=== PATIENT | male | born 1990 | race Two or more races ===

== ENCOUNTER 2025-02-02 14:08 | Outpatient (AMB) | payer OTHER, SELFPAY ==
[2025-02-02 14:16] VITALS: BP 120/60; PULSE 95; O2SAT 97
--- NOTE | 2025-02-02 14:16 | A.OFFVIS_ITS ---
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 fatigued during the day Fisher Troll Line Required: Yes Fisher Troll Line Name: Sanjuana Accompanied by: Self / Same As Patient Allergies No Known Allergies Allergy (Verified 02/02/25 14:18) HPI Comments Details: 34 year old Kazakh male referred to us by his pcp for a sleep apnea evaluation. Fisher Troll Line on Ipad helps with history He goes to sleep at 11am and falls asleep at 1am and will wake up at 6-8am in the morning. He has been getting up 2x for the bathroom. He stays on his cellphone. Has multiple arousals, and takes naps daily. He feels fatigued daily and has mild headaches 1-2/week.He denies parasomnias and or abnormal movements in sleep. He has allergies and congestion of sinuses takes flonase 50mcg/actuation 1 spray. He has psoriasis and an upcoming appt with an manager of allied health services. His memory is poor and he forgets alot. Mood is obsessive, he has intrusive thoughts and feels depressed, he takes anxiety meds fluoxamine 100mg po BID. Diet is stable. He denies smoking, taking MJ and or and drinks alcohol socially. Physical Exam Vital Signs: Last Vital Signs Pulse 95 02/02/25 14:16 BP 120/60 02/02/25 14:16 Pulse Ox 97 02/02/25 14:16 Oxygen Delivery Method Room Air 02/02/25 14:16 Const General: cooperative, comfortable and no acute distress Nutritional Appearance: average body habitus Orientation/consciousness: patient oriented x3 HEENT Face and sinus: Yes face symmetric Teeth and gingiva: other (mallampti score of 3) Eyes Pupils: Equal, round and reactive pupils present Neck Neck: Yes full ROM Resp Effort & Inspection: normal respiratory effort and able to speak in complete sentences Neuro General: patient oriented x3 and moves all extremities Cranial nerves: Yes Equal, round and reactive pupils present, Yes Normal facial strength present, Yes Midline tongue present, Yes Ability to bilaterally rotate head present and Yes Ability to bilaterally elevate shoulders present Cognition (Neuro): normal cognition Gait exam (Neuro): Normal gait present Motor exam (neuro): 5/5 motor strength present throughout and Normal motor mu scle tone present throughout Psych Appearance: grossly normal Mental Status: mental status grossly normal Thought process: Normal thought process present Thought content: Normal thought content present Assessment & Plan Assessment & Plan (1) Excessive daytime sleepiness: Code(s): G47.19 - Other hypersomnia Category: Medical Plan HST to r/o yen labs to r/o fatigue related to anemia or deficiencies F/U in 3 months. Orders: Orders RT home sleep study Today G47.19 - Other hypersomnia Vitamin B6 Today G47.19 - Other hypersomnia Vitamin B1 Today G47.19 - Other hypersomnia Methylmalonic Acid Today G47.19 - Other hypersomnia, G47.9 - Sleep disorder, unspecified, R53.83 - Other fatigue Ferritin Today G47.19 - Other hypersomnia Comprehensive Met. Panel Today G47.19 - Other hypersomnia Complete Blood Count no Diff Today G47.19 - Other hypersomnia Vitamin D 25-OH Total Today G47.19 - Other hypersomnia Vitamin B12 and Folate Today G47.19 - Other hypersomnia TSH reflex Free T4 Today G47.19 - Other hypersomnia Homocysteine Today G47.19 - Other hypersomnia, G47.9 - Sleep disorder, unspecified, R53.83 - Other fatigue Patient Instructions: Sleep Hygiene provided: set a scheduled bedtime and wake time to help regulate the circadian rhythm and balance the release of pituitary hormones. Sleep in a dark room, temperatures below 68 degrees, and no devices n bed. Limit caffeinated products 6 hours prior to bed, and limit fluids 2-4 hours prior to bed. Gentle night yoga, diffusing essential oils, and playing soft music can be relaxing. Coding Level of Care Code New Pt Level 4 (68685) Diagnoses Excessive daytime sleepiness G47.19 Sleep Questionnaire Difficulty falling asleep: No Difficulty staying asleep?: No Number of arousals: 2-3 Snoring: Yes Witnessed apneas: No Gasping arousals: No Nocturia: Yes GERD: No Vivid dreams: No Acting out dreams: No Abnormal behavior in sleep: No Abnormal movements in sleep: No Morning headaches: No Excessive daytime sleepiness: No Daytime naps: Yes Restless legs: No Hallucinations: No Sleep paralysis: No Drop attacks: Yes Sleep Study: No CPAP: No
== END 2025-02-02 14:52 | disposition home or self-care (01) ==
LOC: HO.HSMS 14:09
PROVIDERS: Visit Provider Physician Assistant Medical
DX: G47.19 Other hypersomnia (principal)
CPT/HCPCS: 99204

== ENCOUNTER 2025-02-03 09:42 | Outpatient (REF) | payer OTHER, SELFPAY ==
--- OUTSIDE RECORDS SUMMARY | 2025-02-03 10:50 | XMS_ITS | Encounter Summary ---
Author Organization [facility] Address [address] [place] [address] Care Team Providers Care Final Assembly Inspector Name Role Phone Kamryn Pierson PA-C Primary Care Provider [phone] Encounter Details Date Type Department Care Team ([facility] st Contact Info) Description 06/08/2024 / TELEPHONE [facility] [address] [place] [phone] Cruz Agosto LCSW [address] [place], [place] [phone] Social History Tobacco Use Types Packs/Day Years Used Date Smoking Tobacco: Never Smokeless Tobacco: Never Alcohol Use Standard Drinks/Week Comments Yes 0 (1 standard drink = 0.6 oz pur e alcohol) Soccialy Wine Social Connections Answer Date Recorded Connectedness 0 09/03/2021 Financial Resource Strain Answer Date R ecorded Financial Resource Strain 0 2021 Stress Answer Date Recorded Stress 0 09/03/2021 Physical Activity Answer Date Recorded Physical Activity 0 06/05/2021 Food Insecurity Answer Date Recorded Food 0 09/03/2021 Transportation Needs Answer Date Record ed Transportation 0 09/03/2021 Housing Stability Answer Date Recorded Housing 0 09/03/2021 Safety and Environment Answer Date Kareem rded Safety 0 09/03/2021 Utilities Answer Date Recorded Utilities 0 09/03/2021 Employment Answer Date Recorded Stress 0 09/03/2021 Sex and Gender Information Value Date Recorded Sex Assigned at Male 09/03/2021 1:03 PM PDT Legal Sex Male 8:21 AM PST Gender Identity Male 09/03/2021 1:03 PM PDT Sexual Orientation Straight 09/03/2021 1: 03 PM PDT COVID-19 Exposure Response Date Recorded In the last 10 days, have yo u been in contact with someone who was confirmed or suspected to have Coronavirus/COVID-19? Unable to assess 05/27/2024 11: 04 AM EST documented as of this encounter Plan of Treatment Upcoming Encounters Date Type Department Care Team (Late st Contact Info) Description 02/10/2025 3:15 PM EDT BH/MH Visits [facility] [address] [place] [phone] Aly Payne, ROOFING SUPERINTENDENT [address] [place] [address] 02/25/2025 9:40 AM EDT BH/MH Visits [address] [phone] Marjorie Medina, SWEAT BOX ATTENDANT [address] [place] [phone] Salome Espinoza [address] [place] [address] 05/23/2025 10:00 AM EST Office Visit [facility] Dental [address] [place] [phone] [place] [address] documented as of this encounter Visit Diagnoses Diagnosis Anxiety- Primary Anxiety state, unspecified documented in this encounter Additional Health Concerns Assessment Noted Time PHQ-9 Depression Total Score: 0 08/21/19 11:03 AM PDT A Depression follow-up plan has been documented for the patient 11/28/2023 11:38 AM PDT documented as of this encounter Care Teams Final Assembly Inspector Relationship Specialty Start Date End Date Kamryn Pierson PA-C [address] [place] [address] PCP - General Primary Care 08/04/23 documented as of this encounter
--- OUTSIDE RECORDS SUMMARY | 2025-02-03 10:50 | XMS_ITS | Clinical Summary ---
Author Organization [facility] Address [address] [place] [address] Care Team Providers Care Vocational Nurse Name Role Phone Kamryn Pierson PA-C Primary Care Provider Source Comments PLEASE NOTE, if this patient is a minor, it may be UNLAWFUL to discuss sensitive information that is contained in these records (such as FAMILY PLANNING, MENTAL HEALTH or SUBSTANCE ABUSE) with the minor patient's parent or other person without the patient's specific authorization.[facility] Allergies No known active allergies Medications cetirizine (ZYRTEC) 10 mg tabletIndication s:Seasonal allergic rhinitis, unspecified trigger Take 1 Tablet by mouth once daily 90 Tablet 1 2 Active clotrimazole-bet amethasone (LOTRISONE) 1-0.05 % creamIndications :Ringworm Apply topically 2 (two) times daily 45 g 4 Active fluticasone (FLONASE) 50 mcg/actuation nasal sprayIndications :Seasonal allergic rhinitis, unspecified trigger SHAKE LIQUID AND USE 1 SPRAY IN EACH NOSTRIL EVERY DAY 16 g 1 4 Active fluvoxaMINE (LUVOX) 100 mg tabletIndication s:Obsessive-comp ulsive disorder with good or fair insight Take 1 Tablet by mouth 2 (two) times daily for 90 days. 60 Tablet 2 5 03/17/20 25 Active predniSONE (DELTASONE) 20 mg tabletIndication s:Contact dermatitis, unspecified contact dermatitis type, unspecified trigger Take 3 Tablets by mouth once daily for 5 days, THEN 2 Tablets once daily for 5 days, THEN 1 Tablet once daily for 5 days. 30 Tablet 5 02/06/20 25 Active betamethasone dipropionate 0.05 % creamIndications :Contact dermatitis, unspecified contact dermatitis type, unspecified trigger Apply BID on areas BELOW the neck. Use only ONCE DAILY for areas ABOVE the neck. 45 g 5 Active diphenhydrAMINE (BENADRYL) 50 mg capsuleIndicatio ns:Contact dermatitis, unspecified contact dermatitis type, unspecified trigger Take 1 Capsule by mouth nightly at bedtime as needed for allergies or itching. 90 Capsule 5 Active betamethasone dipropionate 0.05 % creamIndications :Contact dermatitis, unspecified contact dermatitis type, unspecified trigger Apply BID on areas BELOW the neck. Use only ONCE DAILY for areas ABOVE the neck 45 g 4 01/22/20 25 Discontin ued(Reord er (E-Cancel Not Sent)) diphenhydrAMINE (BENADRYL) 50 mg capsuleIndicatio ns:Contact dermatitis, unspecified contact dermatitis type, unspecified trigger Take 1 Capsule by mouth every 6 (six) hours as needed for allergies or itching 90 Capsule 4 01/22/20 25 Discontin ued(Reord er (E-Cancel Not Sent)) Active Problems Problem Noted Date Diagnosed Date Prediabetes 12/17/2024 Obsessive-compulsive disorder with good or fair insight 09/02/2024 Unspecified anxiety disorder 04/22/2024 Chronic sinusitis 09/03/2021 Encounters Date Type Department Care Team Description 01/21/2025 3:00 PM EDT Office Visit [address] [phone] Milton Billingsley PA-C Martinez, Celestia 01/06/2025 3:15 PM EDT BH/MH Visits [facility] [address] [place] [phone] Aly Payne LCSW 12/31/2024 9:40 AM EDT BH/MH Visits [address] [phone] Marjorie Medina FNP Zayas, Juan 12/17/2024 9:40 AM EDT BH/MH Visits [address] [phone] Marjorie Medina FNP Martinez, Celestia 12/17/2024 Results Follow-Up [facility] [address] [place] [phone] Tea Márquez NP 12/16/2024 9:00 AM EDT Office Visit [facility] [address] [place] [phone] Tea Márquez APPRENTICE EMBALMER 12/09/2024 3:15 PM EDT BH/MH Visits [facility] [address] [place] [phone] Aly Payne, MACHINE TOOL REBUILDER 11/12/2024 9:40 AM EDT Office Visit [facility] [address] [place] [phone] Jim Stanton, [facility] 11/11/2024 3:15 PM EDT BH/MH Visits [facility] [address] [place] [phone] Aly Payne, MACHINE TOOL REBUILDER 11/05/2024 9:30 AM EDT BH/MH Visits [address] [phone] Marjorie Medina, Salome Moreno from Last 3 Months Immunizations Immunization Administration Dates Next Due Moderna COVID-19 Vaccine, re d cap blue label, 12+ Primary Series 09/29/2020,09/06/2020 PFIZER COVID VACCINE, PURPLE CAP, 12+ 05/14/2021 TDAP 09/03/2021 Family History Medical History Relation Name Comments Diabetes Father Herniated disc and Prostatitis Father Hypertension Father Lymphoma Maternal Uncle Relation Name Status Comments Father Alive Maternal Uncle Mother Alive Social History Tobacco Use Types Packs/Day Years Used Date Smoking Tobacco: Never Smokeless Tobacco: Never Tobacco Cessation:Counseling Given: Not Answered Alcohol Use Standard Drinks/Week Comments Yes 0 [...] Orientation Straight 09/03/2021 1: 03 PM PDT Last Filed Vital Signs Vital Sign Reading Time Taken Comments Blood Pressure 132/53 01/21/2025 3:18 PM EDT Pulse 82 01/21/2025 3:18 PM EDT Temperature 36.8 C (98.3 F) 01/21/2025 3:18 PM EDT Respiratory Rate 16 01/21/2025 3:18 PM EDT Oxygen Saturation 97% 01/21/2025 3:18 PM EDT Inhaled Oxygen Concentration - - Weight 113.4 kg (250 lb 1.6 oz) 01/21/2025 3:18 PM EDT Height 195.6 cm (6' 5 ) 12/16/2024 9:14 AM EDT Body Mass Index 29.66 12/16/2024 9:14 AM EDT Plan of Treatment Upcoming Encounters Date Type Department Care Team (Late st Contact Info) Description 02/10/2025 3:15 PM EDT / Visits [facility] [address] [place] [phone] Aly Payne, MACHINE TOOL REBUILDER [address] [place], [place] [phone] 02/25/2025 9:40 AM EDT /MH Visits [facility] [address] [place] [phone] Marjorie Medina, ACCOUNTING OFFICE MANAGER [address] [place] [phone] Salome Espinoza [address] [place] [address] 05/23/2025 10:00 AM EST [facility] Visit [facility] [address] [place] [phone] Jim Stanton, RD [address] [place] [address] Health Maintenance Due Date Last Done Comments Dental FMX/Pano 1991 Imm-Hepatitis B (1 of 3 - 19 + 3-dose series) 08/24/2010 Imm-Pneumococcal (1 of 2 - PCV) 08/24/2010 [id number] ( season) 2024 05/14/2021, 09/29/2020, 09/06/2020 Annual Wellness (Adult): Ind icated (All Coverage) 08/20/2024 08/21/2023, 09/03/2021 Imm-Influenza (#1) 2025 Dental BW 11/14/2025 11/12/2024, 09/25/2023 Dental Examination 11/14/2025 11/12/2024, 09/25/2023 Dental Perio Charting 11/14/2025 11/12/2024 Dental Prophy 11/14/2025 11/12/2024, 09/25/2023 Anxiety Screening 12/16/2025 12/16/2024 Diabetes Screening 12/16/2025 12/16/2024, 0 09/05/2023, 09/04/2021, Additional history exists Tobacco Screening 12/31/2025 12/31/2024, 09/03/2021 Hypertension Screening (#1) 01/21/2026 Imm-DTaP/Tdap/Td (2 - Td or Tdap) 09/04/2031 022 HIV Screening Completed 09/04/2021 Hepatitis C Screening Completed 09/04/2021 Alcohol and Drug Screen Completed 12/17/19, 08/21/2023, 10/24/2021, Additional history exists Depression Annual Screen Completed 12/16/2024 Procedures Procedure Name Priority Date/Time Associated Diagnosis Comments URINALYSIS, MULTISTIX (POCT) Routine 12/16/2024 11:42 AM EDT Frequency of urination HEMOGLOBIN GLYCOSYLATED A1C Routine 12/16/2024 10:13 AM EDT Obesity (BMI 30-39.9) DENTAL CASE MANAGEMENT - MOTIVATIONAL INTV Routine 11/12/2024 9:40 AM EDT Encounter for dental examination PROPHYLAXIS - ADULT Routine 11/12/2024 9 :40 AM EDT Encounter for dental examination BITEWINGS - FOUR RADIOGRAPHIC IMAGES Routine 11/12/2024 9:40 AM EDT Encounter for dental examination COMP PERIODONTAL EVALUATION - NEW/EST PATIENT Routine 11/12/2024 9:40 AM EDT Encounter for dental examination PERIODIC ORAL EVALUATION ESTABLISHED PATIENT Routine 11/12/2024 9:40 AM EDT Encounter for dental examination CARIES RISK ASSESSMENT & DOC FINDING MOD RISK Routine 11/12/2024 9:40 AM EDT Encounter for dental examination NUTRITIONAL COUNSELING CONTROL OF DENTAL DISEASE Routine 11/12/2024 9:40 AM EDT Encounter for dental examination ORAL HYGIENE INSTRUCTIONS Routine 11/12/2024 9:40 AM EDT Encounter for dental examination ORAL CANCER SCREENING Routine 11/12/2024 9:40 AM EDT Encounter for dental examination CASE PRESENTATION SUBS DTL & EXTENSIVE TX PLN Routine 11/12/2024 9:40 AM EDT Encounter for dental examination HIV 1/2 AG & AB W/RFLX (4TH GEN) Routine 09/04/2021 10:53 AM EDT Screening for viral disease HEPATITIS C AB W/RFLX HCV RNA, QT, RT PCR Routine 09/04/2021 10:53 AM EDT Screening for viral disease from Last 3 Months or Most Recently Relevant to Health Maintenance Results * (ABNORMAL) URINALYSIS, MULTISTIX (POCT) Urine Routine (12/16/2024 11:42 AM EDT) URINE GLUCOSE NEGATIVE NEGATIVE [facility] PO[facility] URINE BILIRUBIN NEGATIVE NEGATIVE [facility] POCT URINE KETONES NEGATIVE NEGATIVE [facility] POCT URINE SPECIFIC GRAVITY 1.025 <=1.005 - >=1.030 [facility] PO[facility] URINE BLOOD TRACE(A) NEGATIVE [facility] PO[facility] URINE PH 6.0 5.0 - 8.5 [facility] PO[facility] URINE PROTEIN Negative Negative [facility] POCT URINE UROBILINOGEN 0.2 0.2 - 1.0 E.U./dL [facility] PO[facility] URINE NITRITE NEGATIVE NEGATIVE [facility] POCT URINE LEUKOCYTES NEGATIVE NEGATIVE [facility] POCT URINE COLOR DARK YELLOW STRAW, YELLOW [facility] POCT ODOR URINE Normal Normal [facility] POCT CLARITY OF URINE CLEAR CLEAR [facility] POCT Urine Urine specimen / Unknown 12/16/2024 11:42 AM EDT Tea Márquez APPRENTICE EMBALMER LAB URINE AMBULATORY Final Resu lt Performing Organization Address City/[facility]/ZIP Co de Phone Number [facility]- [facility] OFF[facility] POCT * (ABNORMAL) HEMOGLOBIN GLYCOSYLATED A1C Routine (12/16/2024 10:13 AM EDT) HEMOGLOBIN A1C 5.9(H) <5.7 % [place] Comment: For someone without known diabetes, a hemoglobin A1c value between 5.7% and 6.4% is consistent with prediabetes and should be confirmed with a follow-up test. For someone with known diabetes, a value <7% indicates that their diabetes is well controlled. A1c targets should be individualized based on duration of diabetes, age, comorbid conditions, and other considerations. This assay result is consistent with an increased risk of diabetes. Currently, no consensus exists regarding use of hemoglobin A1c for diagnosis of diabetes for children. Blood Blood / Unknown 12/16/2024 1 0:13 AM EDT 12/16/2024 10:14 AM EDT [employer] Tea Márquez APPRENTICE EMBALMER LAB - BLOOD DRAW Final Result Performing Organization Address City/[facility]/ZIP Co de Phone Number [facility] [address] [address], [place] [address] [address] * HEPATITIS C AB W/RFLX HCV RNA, QT, RT PCR (09/04/2021 10:53 AM EDT) HEPATITIS C ANTIBODY NON-REACT ELZA NON-REACT ELZA [place] [facility] SIGNAL TO CUT-OFF 0.01 <1.00 [facility] Comment: HCV antibody was non-reactive. There is no laboratory evidence of HCV infection. In most cases, no further action is required. However, if recent HCV exposure is suspected, a test for HCV RNA (test code 93123) is suggested. For additional information please refer to http://TheSedge.org.Ele.me/faq/TLP41o0 (This link is being provided for informational/ educational purposes only.) Blood Blood / Unknown 09/04/2021 1 0:53 AM EDT 09/04/2021 10:53 AM EDT Narrative [facility] - 09/04/2021 9:53 PM EDT FASTING:YES Rena Glasgow ACCOUNTING OFFICE MANAGER-C LAB - BLOOD DRAW Final Resul t [facility] [address] [address], [place] [address] [phone] * HIV 1/2 AG & AB W/RFLX (4TH GEN) (09/04/2021 10:53 AM EDT) Pathologist [facility] HIV AG/AB, 4TH GEN NON-REAC TIVE NON-REAC TIVE [facility] Comment: HIV-1 antigen and HIV-1/HIV-2 antibodies were not detected. There is no laboratory evidence of HIV infection. PLEASE NOTE: This information has been disclosed to you from records whose confidentiality may be protected by state law. If your state requires such protection, then the state law prohibits you from making any further disclosure of the information without the specific written consent of the person to whom it pertains, or as otherwise permitted by law. A general authorization for the release of medical or other information is NOT sufficient for this purpose. For additional information please refer to http://education.Ele.me/faq/PFP185 (This link is being provided for informational/ educational purposes only.) The performance of this assay has not been clinically validated in patients less than 2 years old. Blood Blood / Unknown 09/04/2021 1 0:53 AM EDT 09/04/2021 10:53 AM EDT Narrative [facility] - 09/04/2021 9:53 PM EDT FASTING:YES Rena Sepulvedaadia ACCOUNTING OFFICE MANAGER-C LAB - BLOOD DRAW Final Resul t [facility] [address] [address], [place] [facility] [address] [address] from Last 3 Months or Most Recently Relevant to Health Maintenance Insurance [facility] Member Subscriber Plan / Payer (Ef fective 2023-Present) Name:Vargas Domingo Relation to Subscriber:Self Name:Vargas Domingo Payer ID:[id number] Type:[employer] Address: [address] [place] [id number] [place] [address] DENTAL [facility] Care Teams Vocational Nurse Relationship Specialty Start Date End Date Kamryn Pierson PA-C [address] [place] [address] PCP - General Primary Care 08/04/23
--- OUTSIDE RECORDS SUMMARY | 2025-02-03 10:50 | XMS_ITS | Encounter Summary ---
Author Organization [facility] Address [address] [place] [address] Care Team Providers Care Teacher Ballet Name Role Phone Kamryn Pierson PA-C Primary Care Provider [phone]- [phone] Encounter Details Date Type Department Care Team (Late st Contact Info) Description 10/15/2021 Dental Interim Note [facility] [address] [facility] Dental [address] [place] [phone] ArthurAna roper Y [address] [place] [address] Social History Tobacco Use Types Packs/Day Years [...] was confirmed or suspected to have Coronavirus/COVID-19? No / Unsure 10/17/2021 10:28 AM EDT documented as of this encounter Plan of Treatment Upcoming Encounters Date Type Department Care Team (Late st Contact Info) Description 02/10/2025 3:15 PM EDT BH/MH Visits [facility] [address] [place] [phone] Aly Payne, FURNACE SETTER [address] [place] [address] 02/25/2025 9:40 AM EDT BH/MH Visits [address] [phone] Marjorie Medina, APPLIANCE PAINTER AND REFINISHER [address] [place] [phone] Salome Espinoza [address] [place] [address] 05/23/2025 10:00 AM EST Office Visit [facility] [address] [place] [phone] Jim Stanton, [facility] [address] [place] [address] documented as of this encounter Visit Diagnoses Not on filedocumented in this encounter Additional Health Concerns Assessment Noted Time PHQ-9 Depression Total Score: 0 09/04/19 22 2:27 PM PDT A Depression follow-up plan has been documented for the patient 09/03/2021 4:03 PM PDT documented as of this encounter Care Teams Teacher Ballet Relationship Specialty Start Date End Date Kamryn Pierson PA-C [address] [place] [address] PCP - General Primary Care 08/04/23 documented as of this encounter
[2025-02-03 13:37] LABS: Hematocrit 40.7 % (42.0-52.0); Hemoglobin 12.8 g/dl (14.0-18.0); Mean Corpuscular HGB Conc 31.4 g/dl (31.0-36.0); Mean Corpuscular Hemoglobin 27.9 pg (27.0-33.0); Mean Corpuscular Volume 88.9 fL (80.0-98.0); NRBC Abs Auto 0.000 X10*3/uL (0.0-0.012); NRBC Pct Auto 0.0 /100WBC (0.0-0.2); Platelet Count 212 X10*3/uL (160-400); Red Blood Count 4.58 X10*6/uL (4.60-5.80); White Blood Count 8.2 X10*3/uL (4.8-10.8)
[2025-02-03 14:04] LABS: Alanine Aminotransferase 35 U/L (0-40); Albumin Level 4.1 g/dL (3.5-5.0); Alkaline Phosphatase 153 U/L (39-117); Anion Gap 10 (12-20); Aspartate Amino Transferase 27 U/L (5-37); Blood Urea Nitrogen 11 mg/dL (9-16); Calcium 8.5 mg/dL (8.4-10.2); Carbon Dioxide 26 mmol/L (22-29); Chloride 107 mmol/L (96-108); Estimated Glomerular Filt Rate > 60; Potassium 4.1 mmol/L (3.3-5.1); Sodium 139 mmol/L (135-145); Total Protein 7.1 g/dL (6.5-8.0)
[2025-02-03 14:20] LABS: Ferritin 59 ng/mL (20-250)
[2025-02-03 14:33] LABS: Folate 9.7 ng/mL (> or = 4.0); Vitamin B12 420 pg/mL (200-900)
== END 2025-02-03 09:43 | disposition home or self-care (01) ==
LOC: HO.HKASLDS 09:42
PROVIDERS: Visit Provider Physician Assistant Medical
DX: G47.19 Other hypersomnia (principal); R53.83 Other fatigue; Z13.21 Encounter for screening for nutritional disorder; Z13.1 Encounter for screening for diabetes mellitus
CPT/HCPCS: 36415; 80053; 82306; 82607; 82728; 82746; 83090; 83921; 84207; 84425; 84443; 85027